=== PATIENT | female | born 1970 | race Caucasian/White ===

== ENCOUNTER 2019-06-21 10:35 | Day surgery (SDC) | payer BC ==
[~2019-06-21 10:35] MED LIST: ACETAMINOPHEN 1,000 MG/100 ML BTL IVPB ONE; CLINDAMYCIN PHOS/D5W 900MG 900 MG/50 ML BAG IVPB ONE
[2019-06-21] MEDS ORDERED: FENTANYL PF 100MCG/2ML VIAL IV ONE (10:36)
[2019-06-21] MEDS ORDERED: KETOROLAC 30 MG/ML VIAL IVP ONE (10:36)
[2019-06-21] MEDS ORDERED: ONDANSETRON HCL IV 4 MG/2 ML VIAL IVP ONE (10:36)
[2019-06-21] MEDS ORDERED: SEVOFLURANE 250 ML INH ONE (10:36)
[2019-06-21] MEDS ORDERED: PROPOFOL 10 MG/ML VIAL IV ONE (10:36)
[2019-06-21] MEDS ORDERED: LIDOCAINE 2% MDV (20MG/ML) 20ML VIAL IV ONE (10:36)
[2019-06-21] MEDS ORDERED: MIDAZOLAM HCL 2MG/2ML VIAL IV ONE (10:36)
[2019-06-21] MEDS ORDERED: RINGERS SOLUTION,LACTATED 1,000 ML IV ONE (11:26)
[2019-06-21] MEDS ORDERED: BUPIVACAINE 0.5% W/EPI MPF 30 ML VIAL SQ ONE (13:58)
[2019-06-21] MEDS ORDERED: MORPHINE SULFATE (PACU ONLY) 4 MG/ML VIAL IU ONE (14:11)
[2019-06-21] MEDS ORDERED: METHYLPREDNISOLONE 40MG/VIAL IU ONE (14:11)
--- NOTE | 2019-06-22 14:10 | Operative Note ---
DATE OF SURGERY: 06/21/2019 PREOPERATIVE DIAGNOSIS: Internal derangement of the left knee. POSTOPERATIVE DIAGNOSES: 1. Grade 3 chondromalacia of patella. 2. Chronically torn ACL. 3. Tear of the posterior horn of the lateral meniscus. OPERATION: 1. Left knee arthroscopy with partial lateral meniscectomy. 2. left knee arthroscopy with chondroplasty of the patella. 3. Left knee examination un mile anesthesia. STAFF SURGEON: Mike Holley MD ANESTHESIA: General. PREPARATION: Chloraprep. INDIVIDUAL CONSIDERATIONS: None. PROCEDURE: The patient was taken to the operating room and placed supine on the operating room table. The patient had a successful induction with general anesthetic. The left lower extremity was prepped and draped in the usual fashion. Examination under anesthesia showed increased excursion to Aime's anteriorly and a 1 to 2+ pivot shift. The patient had a superolateral inflow cannula placed. Skin was infiltrated with 0.5% Marcaine with epinephrine prior. The knee was inflated with normal saline. An inferomedial and an inferolateral portal were made in a similar fashion. The arthroscope was introduced through the inferolateral portal up into the pouch. No loose bodies were seen in the pouch or either gutter. Grade 3 changes were seen on the patella and these were smoothed with a shaver. Medially, medial compartment structures were well seen and probed and found to be normal. On the notch, the PCL was normal but the ACL was basically torn and scarred. The stump was scarred to the remaining PCL. This looked chronic in appearance many years. Laterally, she had basically torn the posterior horn of the lateral meniscus which was unstable. I had to remove it with basket forceps and a shaver. It was not repairable. Articular cartilage was okay, and the lateral and anterior horns of the meniscus were intact. After irrigation, portals were closed with arjun, and 20 mL of 0.5% Marcaine with epinephrine along with 4 mg of morphine and 40 mg of Depo-Medrol were injected into the knee. A sterile bulky compressive dressing was applied. The patient tolerated procedure well. Needle and sponge counts were correct. Estimated blood loss was minimal. She was taken back to recovery in good condition. There were no complications. LEROY
== END 2019-06-21 15:05 | disposition home or self-care (01) ==
LOC: SUR 10:35
PROVIDERS: ATTEND Orthopaedic Surgery
DX: S83.282A Other tear of lateral meniscus, current injury, left knee, initial encounter (principal); S83.32XA Tear of articular cartilage of left knee, current, initial encounter; M22.42 Chondromalacia patellae, left knee; I10 Essential (primary) hypertension; I25.10 Atherosclerotic heart disease of native coronary artery without angina pectoris; G47.33 Obstructive sleep apnea (adult) (pediatric); E66.9 Obesity, unspecified
CPT/HCPCS: 81025; J1030; J1885; J2270; J2405; J3490; J7120